=== PATIENT | female | born 1945 | race Caucasian/White ===

== ENCOUNTER 2017-06-12 10:04 | Day surgery (SDC) | payer MEDICARE ==
[~2017-06-12] VITALS: Ht 162.6 cm; Wt 88.9 kg
[~2017-06-12 10:04] MED LIST: Omeprazole20 M1
[2017-06-12] MEDS ORDERED: CALCA400CH (11:20)
[2017-06-12] MEDS ORDERED: Coq-1030 MG (11:21)
== END 2017-06-12 12:46 | disposition home or self-care (01) ==
LOC: ORSCSDS 10:04
PROVIDERS: Surgery
PROC: 0DJD8ZZ Inspection of Lower Intestinal Tract, Via Natural or Artificial Opening Endoscopic (ICD-10-PCS; principal; 2017-06-12 11:30)
DX: Z12.11 Encounter for screening for malignant neoplasm of colon (principal); K57.30 Diverticulosis of large intestine without perforation or abscess without bleeding; Z80.0 Family history of malignant neoplasm of digestive organs
CPT/HCPCS: J7120

== ENCOUNTER → 2018-08-28 | Outpatient (CLI) | payer MEDICARE ==
[~2018-08-28] MED LIST changes: +CALCA400CH; +Coq-1030 MG
== END | disposition home or self-care (01) ==
LOC: LAB SHORT 14:05 → PLD 14:05
DX: C43.59 Malignant melanoma of other part of trunk (principal)
CPT/HCPCS: 88305; 88342

== ENCOUNTER → 2020-05-24 | Outpatient (CLI) | payer OTHER | END | disposition home or self-care (01) | LOC: LAB SHORT 12:57 → PLD 12:57 | DX: D48.5 Neoplasm of uncertain behavior of skin (principal) | CPT/HCPCS: 88305 ==

== ENCOUNTER → 2021-12-19 | Outpatient (CLI) | payer OTHER | LOC: PLD 13:04 → LAB SHORT 13:04 | DX: D22.4 Melanocytic nevi of scalp and neck (principal) | CPT/HCPCS: 88305 ==